=== PATIENT | male | born 1980 | race Caucasian/White ===

== ENCOUNTER 2019-08-22 15:36 | Emergency (ER) | payer SELFPAY ==
[~2019-08-22] VITALS: Ht 182.9 cm; Wt 89.8 kg
[2019-08-22 15:48] VITALS: BP_SYST 168
== END 2019-08-22 19:00 | disposition home or self-care (01) ==
LOC: SED 15:36
DX: M79.18 Myalgia, other site (principal); G47.00 Insomnia, unspecified; Z53.21 Procedure and treatment not carried out due to patient leaving prior to being seen by health care provider